=== PATIENT | female | born 1960 | race Caucasian/White ===

== ENCOUNTER 2018-09-30 19:55 | Emergency (ER) | payer BC, OTHER ==
[2018-09-30 20:07] VITALS: BP 136/81
[2018-09-30] MEDS ORDERED: Eye Irrigation Solution 30 ML BOTTLE RIGHT EYE ONE (21:15)
[2018-09-30] MEDS ORDERED: Fluorescein Sodium TOPICAL* 1 MG TEST STRIP OPHTHALMIC ONE (21:16)
[2018-09-30] MEDS ORDERED: Tetracaine 0.5% OPTH.SOL 4 ML* 1 DROP BTL RIGHT EYE ONE (21:16)
--- NOTE | 2018-09-30 21:17 | UC ---
Eye Complaint HPI - HPI Summary HPI Summary: 58 y/o female presents to the urgent care c/o RT eye with a piece of wood since this afternoon. Pt reports she was walking the dog and ran into a twig. She feels a small discomfort when she closes her eye w/ clear eye discharge, Pt is not sure when was last Tetanus vaccine done. Pt tried to removed it w/o any success. Pt denies fever, eye pain, visual disturbances, URI, SOB, chest pain, abdominal pain, N/V/D. - History of Current Complaint Chief Complaint: UCEye Stated Complaint: EYE COMPLAINT Time Seen by Provider: 09/30/18 20:44 Hx Obtained From: Patient Hx Last Menstrual Period: menopause complete ?: No Onset/Duration: Sudden Onset, Lasting Hours - 3 hrs, Still Present Timing: Constant Severity Initially: Mild Severity Currently: Mild Pain Intensity: 1 Pain Scale Used: 0-10 Numeric Location of Injury: Conjunctiva - Rt eye Character: Foreign Body Sensation Aggravating Factor(s): Blinking Alleviating Factor(s): Nothing Associated Signs And Symptoms: Positive: Drainage (Clear). Negative: Photophobia, Vision Impairment Bilateral, Fever, Swelling - Risk Factors Penetrating Injury Risk Factor: Negative Globe Rupture Risk Factors: Negative Acute Glaucoma Risk Factors: Negative Optic Artery Occlusion Risk Factors: Negative - Allergies/Home Medications Allergies/Adverse Reactions: Allergies Allergy/AdvReac Type Severity Reaction Status Date / Time No Known Allergies Allergy Verified 10/07/13 18:38 PMH/Surg Hx/FS Hx/Imm Hx Previously Healthy: Yes - Pt denies PMHX - Surgical History Surgical History: Yes Surgery Procedure, Year, and Place: polyps removed from uterus; tubal ligation - Family History Known Family History: Positive: Hypertension - Social History Occupation: Employed Full-time Lives: With Family Alcohol Use: Daily Substance Use Type: None Smoking Status (MU): Never Smoked Tobacco Review of Systems All Other Systems Reviewed And Are Negative: Yes Constitutional: Positive: Negative Skin: Positive: Negative Eyes: Positive: Drainage - clear, Eye Redness - Rt eye ENT: Positive: Negative Respiratory: Positive: Negative Cardiovascular: Positive: Negative Gastrointestinal: Positive: Negative Genitourinary: Positive: Negative Motor: Positive: Negative Neurovascular: Positive: Negative Musculoskeletal: Positive: Negative Neurological: Positive: Negative Psychological: Positive: Negative Is Patient Immunocompromised?: No Physical Exam - Summary Physical Exam Summary: Vital Signs Reviewed: Yes General: Well appearing, well nourished female in no apparent pain distress Eyes: Positive: RT Conjunctiva mild red - Visual acuity: WNL,Visual workman: full to confrontation. PERRLA, EOMI intact w/out limitation or complaint of pain. eyelashes clear. mild tearing and clear drainage observed. No ciliary flush. No chemosis, No photophobia. Normal fundoscopic exam; no proptosis, exophthalmos, nystagmus. Positive FB piece of wood in the medial aspect near the lacrimal duct which was removed w/o any difficulty. ENT: Positive: Normal ENT inspection, Hearing grossly normal, Pharynx normal, Nasal congestion, Nasal drainage - clear, TMs normal - B/L external ear canal clear , TM's WNL. Negative: Tonsillar swelling, Tonsillar exudate Neck: Positive: Supple, Nontender, No Lymphadenopathy Respiratory: Positive: Chest nontender, Lungs clear, Normal breath sounds, No respiratory distress Cardiovascular: Positive: RRR, No Murmur, Pulses Normal, Brisk Capillary Refill Abdomen Description: Positive: Nontender, No Organomegaly, Soft. Negative: CVA Tenderness (R), CVA Tenderness (L) Bowel Sounds: Positive: Present Musculoskeletal: Positive: Strength Intact, ROM Intact, No Edema Neurological Exam: Normal Psychological Exam: Normal Skin Exam: Normal Triage Information Reviewed: Yes Vital Signs: Initial Vital Signs Temp 97.0 F 09/30/18 20:00 Pulse 66 09/30/18 20:00 Resp 16 09/30/18 20:00 BP 136/81 09/30/18 20:00 Pulse Ox 99 09/30/18 20:00 Eye Complaint Course/Dx - Course Course Of Treatment: 58 y/o female presents to the urgent care c/o RT eye with a piece of wood since this afternoon. Pt reports she was walking the dog and ran into a twig. She feels a small discomfort when she closes her eye w/ clear eye discharge, Pt is not sure when was last Tetanus vaccine done. Pt tried to removed it w/o any success. Pt denies fever, eye pain, visual disturbances, URI , SOB, chest pain, abdominal pain, N/V/D. Hx obtained. Pt w/ Positive FB piece of wood in the medial aspect near the lacrimal duct which was removed w/o any difficulty on examination. 2 drops of Tetracaine optha drops placed on Pts Rt eye, then irrigated with saline drops to flush any foreign particles, then fluorescein instillation and examination with a UV lamp. Negative corneal abrasion or ulcer. After procedure Pt felt better. Pt givne Tdap vaccines by the nurse. Pt tolerated well IM inj. Pt Rx Erythromycin ophthalmic ointment and advised to f/u w/ [facility] if infection develops. D/C instructions explained. Pt understood and agreed w/ plan of care. - Differential Dx/Diagnosis Differential Diagnosis/HQI/PQRI: Conjunctivitis, Corneal Abrasion, Foreign Body , Penetrating Injury, Periorbital Cellulitis, Orbital Cellulitis Provider Diagnosis: Foreign body in eyeball, right Discharge - Sign-Out/Discharge Documenting (check all that apply): Patient Departure - d/c home All imaging exams completed and their final reports reviewed: No Studies - Discharge Plan Condition: Stable Disposition: HOME Prescriptions: Erythromycin TOPICAL GEL* [Erythromycin OPTH OINT*] 1 applic TOPICAL TID #1 oint Patient Education Materials: Eye Foreign Body (ED) Referrals: Luzmaria Lucio MD [Primary Care Provider] - 3 Days Additional Instructions: 1-Please apply ophthalmic oint as directed to prevent infections. 2- Tetanus vaccines given today as a booster 3- if your developed signs of infection despite ophthalmic oint please return ot the urgent care or f/u with dry kiln burner Dr Valencia for further evaluation and treatment - Billing Disposition and Condition Condition: STABLE Disposition: Home
[2018-09-30] MEDS ORDERED: Tetan/Diph/Pertus SYR(Tdap)* 0.5 ML SYR(BOOSTRIX) use SYR IM ONE (21:36)
== END 2018-09-30 21:55 | disposition home or self-care (01) ==
LOC: UCEAST 19:55
DX: T15.11XA Foreign body in conjunctival sac, right eye, initial encounter (principal); X58.XXXA Exposure to other specified factors, initial encounter; Y92.9 Unspecified place or not applicable; Z23 Encounter for immunization
CPT/HCPCS: 65205; 90471; 90715; 99212; A9270-GY; G0463